=== PATIENT | male | born 1945 | race Caucasian/White ===

== ENCOUNTER 2024-07-21 14:50 | Inpatient (IN) | payer OTHER ==
--- OUTSIDE RECORDS SUMMARY | 2024-07-21 14:54 | XMS REPORT | Clinical Summary ---
Author Name Unknown Organization [facility] [place] Address [address] [place] [address] Care Team Providers Care Healthcare Insurance Sales Agent Name Role Phone Angel Cleveland MD Primary Care Provider [phone] Kenzie Frias MD Unavailable [phone] Angel Cleveland MD Unavailable [phone] Gavin Allen Unavailable Social History Tobacco Use Types Packs/Day Years Used Date Smoking Tobacco: Never Assessed Sex and Gender Information Value Date Recorded Sex Assigned at Not on file Legal Sex Male 4:30 PM [employer] Gender Identity Not on file Sexual Orientation Not on file Plan of Treatment Not on file Care Teams Healthcare Insurance Sales Agent Relationship Specialty Start Date End Date Angel Cleveland MD [address] [place] [phone] [email or web address] PCP - General 09/19/15 Kenzie Frias MD [address] [place] [address] [phone] [email or web address] Physician 09/26/15 Angel Cleveland MD [address] [place] [phone] [email or web address] Physician 09/26/15 Gavin Allen PA [address] [place] [address] [email or web address] Physician Robotics Technologist 09/26/15
[2024-07-21 16:09] LABS: Absolute Eosinophils 0.2 K/uL (0-0.5); Absolute Lymphocytes (CBC) 2.1 K/uL (0.7-4.9); Absolute Monocytes 0.4 K/uL (0.1-1.3); Absolute Neutrophil 4.8 K/uL (1.8-8.0); Basophils % 0.4 % (0-1.3); Eosinophils % 3.2 % (0-4.4); Hematocrit 41.7 % (39.6-49.0); Lymphocytes % 27.4 % (15.3-44.8); MCH 30.8 pg (27.0-35.0); MCHC 33.7 g/dL (32.0-36.0); MCV 91.4 fL (80-100); MPV 6.9 fL (7.6-11.3); Monocytes % 5.5 % (3.3-12.3); Neutrophils % 63.5 % (41.7-73.7); Nucleated Red Blood Cells % 0.1 % (0-0); Platelets 350 thou/uL (152-406); RBC Red Blood Cell Count 4.56 M/uL (4.33-5.43); Red Cell Distribution Width 12.7 % (12.1-15.2)
[2024-07-21 16:14] LABS: PT Prothrombin Time 10.7 SECONDS (9.4-12.5); Protime INR 0.95
[2024-07-21 16:25] LABS: ALT/SGPT 23 U/L (16-61); AST/SGOT 22 U/L (15-37); Albumin 3.3 g/dL (3.4-5.0); Albumin/Globulin Ratio 0.9 (1.1-1.8); Alkaline Phosphatase 111 U/L (45-117); Bilirubin Total 0.4 mg/dL (0.2-1.0); Globulin 3.7 g/dL (2.3-3.5)
[2024-07-21 16:29] LABS: Bilirubin Direct < 0.2 mg/dL (0-0.2); Bilirubin Indirect, Calculated 0.2 mg/dL (0.2-0.8)
[2024-07-21 16:50] LABS: Albumin 3.4 g/dL (3.4-5.0); Albumin/Globulin Ratio 0.9 (1.1-1.8); Anion Gap 7.4 mEq/L (5.0-15.0); Bilirubin Total 0.4 mg/dL (0.2-1.0); Globulin 3.7 g/dL (2.3-3.5); Magnesium 2.2 mg/dL (1.6-2.4); Phosphorus 3.9 mg/dL (2.5-4.9); Potassium 4.4 mEq/L (3.5-5.1); Protein, Total 7.1 g/dL (6.4-8.2); Thyroid Stimulating Hormone 1.45 uIU/mL (0.358-3.740)
--- NOTE | 2024-07-21 17:23 | RAD REPORT ---
EXAMINATION: TWO VIEW CHEST XR CLINICAL INDICATION: new pt, abdominal pain TECHNIQUE: 2 views of the chest was performed. COMPARISON: 07/06/2013 FINDINGS: Moderate bilateral pulmonary opacities are present, greater on the right and extending posteriorly li chloe pneumonia. The heart is moderately enlarged. No displaced fractures evident. IMPRESSION: Moderate bilateral pulmonary opacities, greater on the right, most compatible with pneumonia.
[2024-07-21] MEDS: NACHLORIDE 0.45% 1,000 ML IV SCH (17:34)
[2024-07-21] MEDS: POLYETHYL GLY 3350 17 GM/DOSE PO ONE (17:34)
[2024-07-21 17:45] LABS: Specific Gravity 1.017 (1.005-1.030); Sqamous Epithelial <5 /HPF (None Seen); Urine Bacteria None Seen /HPF (<20); Urine Bilirubin NEGATIVE (Negative); Urine Blood Negative (Negative); Urine Clarity Clear (Clear); Urine Color Light-Yellow (Yellow); Urine Culture Reflex Order NOT NEEDED; Urine Glucose NEGATIVE (Negative); Urine Ketones NEGATIVE (Negative); Urine Microscopic Reflex YN ORDER UMIC; Urine Nitrite NEGATIVE (Negative); Urine Protein NEGATIVE (Negative); Urine RBC None Seen /HPF (None Seen); Urine Urobilinogen Normal (Normal); Urine WBC <5 /HPF (<5); Urine pH 5.5 (5.0-7.0)
[2024-07-21 19:35] VITALS: BMI 281.2
[2024-07-21] MEDS: ENOXAPARIN 40 MG/0.4 ML SQ SCH (19:49)
--- NOTE | 2024-07-21 22:18 | RAD REPORT ---
EXAM: CT CHEST, ABDOMEN AND PELVIS WITH CONTRAST CLINICAL INDICATION: constipation TECHNIQUE: CT chest, abdomen and pelvis was performed, following the administration of contrast, as p er department protocol. Axial, sagittal and coronal reconstructions were obtained. One or more of the following dose reduction techniques were used: Automated exposure control, adjustment of the mA a nd/or kV according to patient size, and/or iterative reconstruction. Unless otherwise specified, incidental findings do not require dedicated imaging follow-up. COMPARISON: 07/21/2024 FINDINGS: LUNGS: Moderate pulmonary fibrosis is present with reduced lung volumes. Slight increase lung marking s in the lower lobes noted. Small hiatal hernia. PLEURA: No pleural effusion. No pneumothorax. MEDIASTINUM AND LYMPH NODES: No mediastinal mass or fluid collection. Normal size mediastinal, hilar, and axillary lymph nodes. OSSEOUS STRUCTURES AND CHEST WALL: Intact. LIVER: Mild fatty liver. 7 mm low-density lesion right lobe medially incompletely evaluated. Grossly unremarkable gallbladder. PANCREAS: No mass, ductal dilation, or sixto-pancreatic fluid. SPLEEN: Normal size. No focal lesion. ADRENALS: Normal; no mass. KIDNEYS: Normal size and contour. No hydronephrosis. URINARY BLADDER: Normal contour. GASTROINTESTINAL TRACT: No bowel obstruction, free air, significant free fluid or abscess. Circumfe rential irregular thickening of the rectal wall measuring up to 2 cm highly concerning for neoplasm. APPENDIX: Normal appendix. LYMPH NODES: No lymphadenopathy. MUSCULOSKELETAL: Mild lumbar degenerative changes. OTHER: IMPRESSION: There is high suspicion for rectal neoplasm. Recommend colonoscopy follow-up. Pulmonary fibrosis is present. Increased basilar lung markings may indicate superimposed infiltrate/p neumonia.
[2024-07-22 04:48] LABS: Hematocrit 38.4 % (39.6-49.0); MCH 30.9 pg (27.0-35.0); MCHC 33.9 g/dL (32.0-36.0); MCV 91.3 fL (80-100); MPV 6.7 fL (7.6-11.3); Platelets 300 thou/uL (152-406); Red Cell Distribution Width 12.4 % (12.1-15.2)
[2024-07-22] MEDS: POLYETHYL GLY 3350 17 GM/DOSE PO SCH (07:45)
[2024-07-22] MEDS: levoFLOXacin 500 MG TAB PO SCH (07:46)
[2024-07-22] MEDS: ACETAMINOPHEN 325 MG TABLET PO PRN (09:27)
[2024-07-22] MEDS: NACHLORIDE 0.45% 1,000 ML IV SCH (17:31)
--- NOTE | 2024-07-22 17:36 | P.PN ---
Subjective Date of Service: 07/22/24 Chief Complaint: not able to have bm [place] has not had bm for days. Enema is now working. CT shows possible rectal mass about 2 cm[address] We [address] in Dr. Olivera to diagnose and biopsy. Review of Systems 10-point ROS is otherwise unremarkable General: Weakness Physical Examination - Vital Signs Temperature: 98.2 F Blood Pressure: 125/68 Pulse: 72 Respirations: 14 Pulse Ox (%): 96 - Physical Exam General: Oriented x3, Mild distress HEENT: Atraumatic, PERRLA, EOMI Neck: Supple, JVD not distended Respiratory: Clear to auscultation bilaterally, Normal air movement Cardiovascular: Regular rate/rhythm, Normal S1 S2 Gastrointestinal: Normal bowel sounds, No tenderness Musculoskeletal: No tenderness Integumentary: No rashes Neurological: Normal speech, Normal tone, Normal affect Lymphatics: No axilla or inguinal lymphadenopathy - Studies Laboratory Data (last 24 hrs) 07/22/24 07/22/24 04:27 04:27 WBC 6.50 Hgb 13.0 L Hct 38.4 L Plt Count 300 Sodium 137 Potassium 4.0 BUN 10 Creatinine 0.73 Glucose 108 H Medications List Reviewed: Yes Assessment And Plan - Current Problems (Diagnosis) (1) Constipation Current Visit: Yes Status: Acute Plan: on workup we found rectal mass. Further plan per Dr. Olivera will need biopsy and surgery. (2) Rectal mass Current Visit: Yes Status: Acute Plan: as above. (3) Pulmonary fibrosis Current Visit: Yes Status: Chronic Plan: possibly smoking related. I have not seen him for 8 years as he has moved out. He came to see me as he has constipation and was not able to have BM after many outpatient therapies. (4) Atypical pneumonia Current Visit: Yes Status: Acute Plan: Not clear about this. He has no symptoms from fibrosis or pneumonia.
[2024-07-22] MEDS: ATORVASTATIN 10 MG TAB PO SCH (20:19)
[2024-07-22] MEDS: DIPHENHYDRAMINE 25 MG TAB/CAP PO PRN (22:03)
--- NOTE | 2024-07-23 07:17 | P.PN ---
Date of Service: 07/23/24 Subjective: small liquid BM yesterday; had few drops of blood in toilet after tying to have BM this morning Reports intermittent bloody streaks when wiping for a few months. denies abdominal pains at this time appetite okay afebrile ROS: 10 point ROS as noted above, otherwise negative Physical Exam: GEN: Alert, NAD CV: Regular rate and rhythm, no edema Pulm: Nonlabored respirations on room air, clear bilaterally ABD: soft, nontender, nondistended Neuro: Normal speech, normal affect Problem List: Rectal thickening, possible rectal Mass, 2cm Constipation Pulmonary Fibrosis, chronic Rectal Mass, 2cm Constipation Presents with constipation. Unable to have BM after multiple medications at home. Reports Intermittent bloody streaks when wiping for ~2 months. small liquid BM this morning; slightly blood tinged. No decent sized BM in [address] chest/abdomen/pelvis (07/21): circumferential irregular thickening of the rectal wall up to 2cm concerning for neoplasm. Dr. Olivera, consulted to traci Anticipate Colonoscopy ~Mon continue daily miralax Start colace BID mag citrate x1 ordered 07/23 Liquid diet for now Pulmonary Fibrosis, chronic CT chest/abd (07/21): also noted pulmonary fibrosis with increased basilar lung marking concerning for superimposed infiltrate/pneumonia. CXR (07/21): moderate bilateral pulmonary opacities. R > L, concern for pneumonia. Asymptomatic. Breathing comfortably on RA. afebrile, no leukocytosis continue empiric oral levaquin(/3-) for possible pneumonia VTE: Lovenox Code: Full Dispo: Home, ~2-3 days Pending Colonoscopy, anticipate ~Mon Time Spent Managing Pts Care (In Minutes): 55
[2024-07-23] MEDS: MAGNESIUM CITRATE 300 ML BOT PO SCH (10:00)
[2024-07-23] MEDS: DOCUSATE NA 100 MG CAP PO SCH (11:14)
--- NOTE | 2024-07-23 14:50 | PN ---
Date of Progress Note: 07/23/2024 Diagnosis: Rectal mass. Subjective: The patient is doing better. He had a small bowel movement today. We are trying to do small bowel prep in this patient due to the history of constipation. We are scheduling an endoscopy either colonoscopy versus flexible sigmoidoscopy, depends on the bowel prep that we can do on him. Physical Examination: Abdomen: Benign at this moment. Soft and depressible. Extremities: Good capillary refill. Plan: Most likely we are going to perform a bowel prep tomorrow. Right now, begin stool softeners a nd he has some enemas. EMELY/AIXA Voice ID: [id number] Report ID: [id number]
--- NOTE | 2024-07-24 09:16 | P.PN ---
Date of Service: 07/24/24 Subjective: decent sized liquid BM yesterday, small BM this morning denies any new / worsening problems abdominal discomfort slightly improving afebrile ROS: 10 point ROS as noted above, otherwise negative Physical Exam: GEN: Alert, NAD CV: Regular rate and rhythm, no edema Pulm: Nonlabored respirations on room air, clear bilaterally ABD: soft, nontender, nondistended Neuro: Normal speech, normal affect Problem List: Rectal thickening, possible rectal Mass, 2cm Constipation Pulmonary Fibrosis, chronic Rectal thickening, possible rectal Mass, 2cm Constipation Presents with constipation. Unable to have BM after multiple medications at home. Reports Intermittent bloody streaks when wiping for ~[address] chest/abdomen/pelvis (07/21): circumferential irregular thickening of the rectal wall up to 2cm concerning for neoplasm. Dr. Olivera, consulted Anticipate Colonoscopy/proctosigmoidoscopy ~Mon continue daily miralax, mag citrate continue colace BID Liquid diet for now Decent sized liquid BM yesterday , small BM this morning Pulmonary Fibrosis, chronic CT chest/abd (07/21): also noted pulmonary fibrosis with increased basilar lung marking concerning for superimposed infiltrate/pneumonia. CXR (07/21): moderate bilateral pulmonary opacities. R > L, concern for pneumonia. Asymptomatic. Breathing comfortably on RA. afebrile, no leukocytosis continue empiric oral levaquin(07/22-) for possible pneumonia VTE: Lovenox Code: Full Dispo: Home, ~1-2 days Pending Colonoscopy, anticipate ~Mon Time Spent Managing Pts Care (In Minutes): 55
--- NOTE | 2024-07-24 15:32 | PN ---
Date of Progress Note: 07/24/2024 Reason For Service: Rectal mass. Subjective: The patient is doing well. We are doing a bowel prep. We have been working for the las t 2 days in that. Today, we are also working with [employer]. He is having bowel movement and passing gas. Objective: Chest: Clear. Abdomen: Soft and depressible. No peritonitis. Plan: Will be a colonoscopy with benefits, alternatives, and risks including, but not limited to, in fection, bleeding, damage to adjacent structures, anesthesia complication, bowel perforation, ID, and even . He also understands this may not relieve any symptoms. He might need more than one brock gical intervention. If we find a mass in that region, we may have to do a biopsy in that area. Tariq garcia. EMELY/AIXA Voice ID: [id number] Report ID: [id number]
[2024-07-24] MEDS: GOLYTELY 4000 ML PO SCH (15:51)
[2024-07-25] MEDS ORDERED: propofoL 200 MG/20 ML VIAL IV ONE (09:50)
[2024-07-25] MEDS ORDERED: LIDOCAINE 1% MPF 5 ML VIAL ONE (09:50)
[2024-07-25] MEDS: Ringers Lactate 1,000 ML IV ONE (10:30)
[2024-07-25] MEDS ORDERED: EPINEPHRINE 1 MG/ML VIAL ONE (10:33)
[2024-07-25 11:48] VITALS: O2SAT 97
--- NOTE | 2024-07-25 13:01 | P.DS ---
Admission Date: 07/22/24 Discharge Date: 07/25/24 Disposition: ROUTINE DISCHARGE Discharge Condition: FAIR Reason for Admission: not able to have bm - Problems (1) Constipation Current Visit: Yes Status: Acute (2) Rectal mass Current Visit: Yes Status: Acute (3) Pulmonary fibrosis Current Visit: Yes Status: Chronic (4) Atypical pneumonia Current Visit: Yes Status: Acute Hospital Course: DREXEL HAD BEEN CLEARED WITH MARK AND DR. HANSON DID CRC. HE FOUND A LARGE RECTAL MASS THAT IS ONLY BLOCKING 1/3 OF LUMEN. HEIS ABLE TO GO HOME ON L ACTULOSE AND WILL FU WITH DR. HANSON ONCE REPORT OF BIOPSY IS BACK. HE WILL NEED RADIATION AND CHEMO BEFORE SURGERY. Vital Signs/Physical Exam: Temp Pulse Resp BP Pulse Ox 97.9 F 72 18 110/45 L 95 07/25/24 11:43 07/25/24 11:43 07/25/24 11:43 07/25/24 11:43 07/25/24 08:00 Laboratory Data at Discharge: WBC 6.50 thou/uL (4.3-10.9) 07/22/24 04:27 Hgb 13.0 g/dL (13.6-17.9) L 07/22/24 04:27 Hct 38.4 % (39.6-49.0) L 07/22/24 04:27 Plt Count 300 thou/uL (152-406) 07/22/24 04:27 PT 10.7 SECONDS (9.4-12.5) 07/21/24 15:51 INR 0.95 07/21/24 15:51 APTT 30.4 SECONDS (24.3-36.9) 07/21/24 15:51 Sodium 137 mEq/L (136-145) 07/22/24 04:27 Potassium 4.0 mEq/L (3.5-5.1) 07/22/24 04:27 BUN 10 mg/dL (7-18) 07/22/24 04:27 Creatinine 0.73 mg/dL (0.70-1.30) 07/22/24 04:27 Glucose 108 mg/dL (74-106) H 07/22/24 04:27 Phosphorus 3.9 mg/dL (2.5-4.9) 07/21/24 15:51 Magnesium 2.2 mg/dL (1.6-2.4) 07/21/24 15:51 Total Bilirubin 0.4 mg/dL (0.2-1.0) 07/21/24 15:51 Total Bilirubin 0.4 mg/dL (0.2-1.0) 07/21/24 15:51 AST 20 U/L (15-37) 07/21/24 15:51 AST 22 U/L (15-37) 07/21/24 15:51 ALT 23 U/L (16-61) 07/21/24 15:51 ALT 26 U/L (16-61) 07/21/24 15:51 Alkaline Phosphatase 111 U/L (45-117) 07/21/24 15:51 Alkaline Phosphatase 112 U/L (45-117) 07/21/24 15:51 Home Medications: Pravastatin [Pravachol*] 40 mg PO BEDTIME 07/21/24 Followup: Chavez Kendrick MD [Primary Care Provider] -
[2024-07-25 13:09] VITALS: BP 133/94; TEMP 97.7
--- NOTE | 2024-08-04 12:22 | EKG ---
Test Date: 2024-07-21 Test Time: 17:34:03 Temp Recruiter: RAYMOND MEASUREMENT RESULTS: Intervals: Rate: 60 VA: 186 QRSD: 78 QT: 454 QTc: 454 [place]: P: 31 VA: 186 QRS: -2 T: 39 INTERPRETIVE STATEMENTS: Sinus rhythm with occasional premature ventricular complexes Otherwise normal ECG No previous ECG available for comparison Electronically Signed On 08-04-24 12:17:38 SOCIAL RESEARCH ASSISTANT by John Pressley
== END 2024-07-25 13:59 | disposition home or self-care (01) | DRG 374 ==
LOC: 2ND 14:50 → OBSVTOIN 07-22 17:27
PROVIDERS: ADMIT Internal Medicine; ATTEND Internal Medicine
PROC: 0DBN8ZX Excision of Sigmoid Colon, Via Natural or Artificial Opening Endoscopic, Diagnostic (ICD-10-PCS; 2024-07-25)
PROC: 0DBM8ZZ Excision of Descending Colon, Via Natural or Artificial Opening Endoscopic (ICD-10-PCS; principal; 2024-07-25 13:00)
DX: C18.9 Malignant neoplasm of colon, unspecified (principal); J18.9 Pneumonia, unspecified organism; K57.31 Diverticulosis of large intestine without perforation or abscess with bleeding; C20 Malignant neoplasm of rectum; J84.10 Pulmonary fibrosis, unspecified; K59.00 Constipation, unspecified; Z88.0 Allergy status to penicillin
CPT/HCPCS: 36415; 71046; 71260; 74177; 80048; 80053; 80076; 81001; 82306; 82607; 83735; 84100; 84443; 85025; 85027; 85610; 85730; 88305; 93005; G0378; G0379; J0171; J1650; J2003; J2704; J7120; Q9967